=== PATIENT | female | born 1980 | race Caucasian/White ===

== ENCOUNTER → 2018-01-31 | Outpatient (CLI) | payer OTHER, MEDICAID ==
[~2018-01-31] MED LIST: ACHYD1T PO; DCS100C PO; FRS325T PO; GADOBUTROL 10 MMOL/10 ML (GADAVIST) VIAL IV ONE; HYDR-3820 PO; HYDR1TAB75 PO; HYDR25TA4 PO; IBP800T PO; NITR100C PO; PEG250PW PO; PREN1TAB39 PO; PS30T PO; TRAM50TA2 PO; VANC250C2 PO; VANCOMYCIN PO; VITA1CAP59 PO
[2018-01-31 19:05] LABS: HEMOGLOBIN 11.9 G/DL (11.5-16.0); MEAN PLATELET VOLUME 10.3 FL (7.4-10.4); RED BLOOD COUNT 3.76 10^6/uL (4.35-5.85); RED CELL DISTRIBUTION WIDTH 12.6 % (10.0-14.5); WHITE BLOOD COUNT 7.3 10^3/uL (4.3-11.0)
[2018-01-31 19:16] LABS: PROTHROMBIN TIME PATIENT 13.1 SEC (12.2-14.7)
--- NOTE | 2018-01-31 19:20 | Diagnostic Imaging Report ---
INDICATION: Headache. COMPARISON: Comparison made with prior examination from 10/21/2009. TECHNIQUE: Multiplanar and multisequence acquisitions were acquired through the brain before and after the administration of gadolinium. FINDINGS: The ventricles and sulci are within normal limits. There is no hydrocephalus. There is no midline shift. There is no intracranial mass, hemorrhage, or extra-axial fluid collection. There are no areas of diffusion restriction appreciated to suggest an acute CVA. There are no abnormal areas of contrast enhancement. Pituitary is normal in appearance. The infundibulum is midline. The optic chiasm is unremarkable. The frontal, ethmoid, sphenoid, and maxillary sinuses are clear. Mastoid air cells are clear. The globes and intraorbital structures are unremarkable. The central arterial and dural venous sinus flow voids are preserved. IMPRESSION: Unremarkable MRI brain. Dictated by: Dictated on workstation # [id number]
== END ==
LOC: RAD 17:32
PROVIDERS: ATTEND Nurse Practitioner Family
DX: R51 Headache (principal); H53.9 Unspecified visual disturbance
CPT/HCPCS: 36415; 70553; 85027; 85610; 85730

== ENCOUNTER → 2018-03-03 | Outpatient (CLI) | payer OTHER, MEDICAID ==
[~2018-03-03] MED LIST changes: -GADOBUTROL 10 MMOL/10 ML (GADAVIST) VIAL IV ONE; +IOHEXOL 350 MG/ML 100 ML (OMNIPAQUE 350) VIAL IV ONE; +NS 250 ML (IVPB) BAG IV ONE; +RECEIVED CONTRAST (Hold Metformin) IV SCH
--- NOTE | 2018-03-03 12:13 | Diagnostic Imaging Report ---
CLINICAL INDICATION: Patient with abdominal pain with nausea. Pain is sharp and mid to left side. Patient is status post hysterectomy. EXAM: CT scan of the abdomen and pelvis performed with 100 cc of Omnipaque 350 IV contrast. Coronal and sagittal reformatted images were created. Portal venous and delayed phases were obtained. FINDINGS: There are small bone islands seen in the left acetabular region. Otherwise, bones show no significant abnormality. There is mild diffuse hyperechogenicity seen throughout the liver likely relating to diffuse fatty infiltration. Otherwise, the liver is unremarkable. The spleen, pancreas, gallbladder, adrenal glands, and both kidneys are unremarkable. There is no evidence of renal mass or hydronephrosis. There are surgical sutures in the region of the cecum, which may be related to appendectomy changes. Appendix is not visualized. There are no fluid collections or bowel wall thickening or abnormality in the pericecal region. Intestines are otherwise unremarkable with no bowel wall thickening or evidence of intestinal obstruction. There is predominantly decompressed stomach noted. There is no significant intra-abdominal free air or free fluid. The uterus has been surgically resected with no significant abnormality seen. IMPRESSION: 1: There is no evidence of acute abdominal or pelvic process. 2: Postop changes to the abdomen and pelvis are seen with hysterectomy and suspected appendectomy changes. There is no significant abnormality in the hysterectomy region. 3: Likely mild diffuse fatty infiltration of the liver. Dictated by: Dictated on workstation # [id number]
== END ==
LOC: RAD 09:57
PROVIDERS: ATTEND Nurse Practitioner Family
DX: R10.2 Pelvic and perineal pain (principal); R11.0 Nausea; Z90.710 Acquired absence of both cervix and uterus
CPT/HCPCS: 74177

== ENCOUNTER → 2018-03-13 | Outpatient (CLI) | payer MEDICAID, OTHER ==
[~2018-03-13] MED LIST changes: +CATHETER FLUSH 10 ML SYR IV PRN; +CHOL500049 PO; +DESM0.1T PO; -IOHEXOL 350 MG/ML 100 ML (OMNIPAQUE 350) VIAL IV ONE; +LIPA1CAP67 PO; +NORG1TAB14 PO; -NS 250 ML (IVPB) BAG IV ONE; -RECEIVED CONTRAST (Hold Metformin) IV SCH
--- NOTE | 2018-03-13 15:44 | Diagnostic Imaging Report ---
Indication: Right upper quadrant pain. Patient was administered 5.3 mCi technetium 99m Choletec intravenously and imaging over the abdomen was performed. At 45 minutes, the patient ingested 8 ounces of Ensure and the gallbladder ejection fraction was calculated. There is homogeneous uptake of activity by liver with prompt excretion of activity into the common duct and gallbladder. Normal passage of activity into the small bowel is seen. Gallbladder ejection fraction is low at 23%. Normal values are 33% or higher. Impression: 1. No evidence of cystic duct or common bile duct obstruction. 2. Low gallbladder ejection fraction of 23%. Dictated by: Dictated on workstation # [id number]
== END ==
LOC: CARD 11:40
PROVIDERS: ATTEND Nurse Practitioner Family
DX: R10.11 Right upper quadrant pain (principal)
CPT/HCPCS: 78227

== ENCOUNTER 2018-03-20 06:33 | Outpatient (CLI) | payer MEDICAID ==
[~2018-03-20] VITALS: Ht 177.8 cm; Wt 88.5 kg
[~2018-03-20 06:33] MED LIST changes: -CATHETER FLUSH 10 ML SYR IV PRN; -CHOL500049 PO; -DESM0.1T PO; -LIPA1CAP67 PO; -NORG1TAB14 PO
[2018-03-20] MEDS ORDERED: NORG1TAB14 PO (16:10)
[2018-03-20] MEDS ORDERED: CHOL500049 PO (16:10)
[2018-03-20] MEDS ORDERED: DESM0.1T PO (16:10)
[2018-03-20] MEDS ORDERED: LIPA1CAP67 PO (16:10)
== END 2018-03-20 16:12 | disposition home or self-care (01) ==
LOC: PREOP 06:33
PROVIDERS: ATTEND Surgery
DX: Z01.818 Encounter for other preprocedural examination (principal)

== ENCOUNTER 2018-03-24 08:31 | Day surgery (SDC) | payer MEDICAID ==
[~2018-03-24] VITALS: Ht 177.8 cm; Wt 88.5 kg
[~2018-03-24 08:31] MED LIST changes: +CHOL500049 PO; +DESM0.1T PO; +LIPA1CAP67 PO; +NORG1TAB14 PO
[2018-03-24 08:35] VITALS: BP 116/73
[2018-03-24] MEDS ORDERED: NS IV 500 ML 500 ML ONE (08:42)
--- NOTE | 2018-03-24 08:54 | Conscious Sedation/ASA ---
Conscious Sedation Pre-Proced Time 08:54 ASA Score 2 For ASA 3 and 4: Consider anesthesia and medical clearance. Also, for patients with a history of failed moderate sedation consider anesthesia. Airway Lungs Heart ASA score ASA 1: a normal healthy patient ASA 2: a patient with a mild systemic disease (mid diabetes, controlled hypertension, obesity ASA 3: a patient with a severe systemic disease that limits activity (angina , COPD, prior Myocardial infarction) ASA 4: a patient with an incapacitating disease that is a constant threat to life (CHF, renal failure) ASA 5: a moribund patient not expected to survive 24 hrs. (ruptured aneurysm) ASA 6: a declared brain patient whose organs are being harvested. For emergent operations, add the letter E after the classification Mallampati Classification Grade 1 Sedation Plan Discussed options with patient/fam The patient is an appropriate candidate to undergo the planned procedure, sedation, and anesthesia. The patient immediately re-assessed prior to indication. EDD MASON MD Mar 24, 2018 08:54
[2018-03-24] MEDS ORDERED: MIDAZOLAM 2 MG/2 ML (VERSED) VIAL ONE ×4 (09:03→09:04)
[2018-03-24] MEDS ORDERED: fentaNYL INJECTION 100 MCG/2 ML AMP ONE (09:03)
[2018-03-24] MEDS ORDERED: HURRICAINE EXT TUBE (BENZOCAINE) ONE (09:04)
--- NOTE | 2018-03-24 09:13 | Endo Procedure Record ---
Endo Procedure Report Date of Procedure Last Colonoscopy: Yes Mar 24, 2018 Surgeon (s) EDD MASON MD Post Procedure/Op Diagnosis grade 1 esophagitis Procedure Performed EGD with antral biopsy for H. pylori Description of Procedure Anesthesia Type: Conscious Sedation Specimen(s) collected/removed antral mucosa for H. pylori Description of the Procedure Indication for the procedure: This lady came in for an endoscopic assessment of symptoms of reflux. Informed consent was obtained after reviewing the procedure in detail. Description of procedure: She was placed in left lateral decubitus position and her vital signs were monitored. Conscious sedation was achieved using Versed and fentanyl. The flexible gastroscope was then introduced down the esophagus, past the stomach, into the proximal duodenum. Findings: Esophagus: Very mild esophagitis and a possibly grade 1 Stomach and duodenum were normal. Due to her symptoms, and antral biopsy was obtained for Helicobacter status. She tolerated the procedure well and was taken back to the nursing area in a stable condition Impression: Symptoms of reflux disease. Mild esophagitis. Helicobacter status pending. Copy Copies To 1: NIKKI RIVERA XAVIER M MD Mar 24, 2018 09:13
[2018-03-24] MEDS ORDERED: NS IV 500 ML 500 ML IV PRN (09:14)
[2018-03-24] MEDS ORDERED: MIDAZOLAM 2 MG/2 ML (VERSED) VIAL IVP ONE (09:15)
[2018-03-24] MEDS ORDERED: fentaNYL INJECTION 100 MCG/2 ML AMP IVP ONE (09:15)
[2018-03-24] MEDS ORDERED: HURRICAINE EXT TUBE (BENZOCAINE) XX PRN (09:15)
--- NOTE | 2018-03-24 09:32 | Discharge Inst-Simple/Standard ---
Discharge Inst-Standard Discharge Medications New, Converted or Re-Newed RX: Other Patient Instructions/Follow Up Plan of Care/Instructions/FU: please call for Prilosec 20 mg daily to her pharmacy. To return for gallbladder surgery next week Activity as Tolerated: Yes Discharge Diet: No Restrictions EDD MASON MD Mar 24, 2018 09:32
[2018-03-24 09:50] VITALS: BP 103/60
[2018-03-24 10:15] VITALS: BP 109/72
[2018-03-24 10:25] VITALS: BP 109/72
== END 2018-03-24 10:25 | disposition home or self-care (01) ==
LOC: ENDO 08:31
PROVIDERS: ATTEND Surgery
DX: K21.0 Gastro-esophageal reflux disease with esophagitis (principal); K81.1 Chronic cholecystitis; Z80.0 Family history of malignant neoplasm of digestive organs

== ENCOUNTER 2018-03-26 05:39 | Outpatient (CLI) | payer MEDICAID ==
[~2018-03-26] VITALS: Ht 177.8 cm; Wt 88.5 kg
== END 2018-03-26 14:59 | disposition home or self-care (01) ==
LOC: PREOP 05:39
PROVIDERS: ATTEND Surgery
DX: Z01.818 Encounter for other preprocedural examination (principal)

== ENCOUNTER 2018-04-02 08:01 | Day surgery (SDC) | payer MEDICAID ==
[~2018-04-02] VITALS: Ht 177.8 cm; Wt 88.5 kg
[2018-04-02] MEDS ORDERED: fentaNYL INJECTION 100 MCG/2 ML AMP ONE ×2 (08:11→09:48)
[2018-04-02] MEDS ORDERED: SEVOFLURANE (ULTANE) 15 ML INHAL SOLN ONE ×4 (08:11→10:22)
[2018-04-02] MEDS ORDERED: ONDANSETRON 4 MG/2 ML (SDV) Z0FRAN ONE ×2 (08:11→08:33)
[2018-04-02] MEDS ORDERED: DEXAMETHASONE 10 MG/ML (DECADRON) 1 ML VIAL ONE (08:11)
[2018-04-02] MEDS ORDERED: proPOfol 200 MG/20 ML (DIPRIVAN) VIAL IV ONE (08:11)
[2018-04-02] MEDS ORDERED: ROCURONIUM 10 MG/ML 5 ML SYRINGE IV ONE (08:11)
[2018-04-02] MEDS ORDERED: MIDAZOLAM 2 MG/2 ML (VERSED) VIAL ONE (08:11)
--- NOTE | 2018-04-02 08:18 | Progress Note-Pre Operative ---
Pre-Operative Progress Note H&P Reviewed The H&P was reviewed, patient examined and no changes noted. Date Seen by Provider: Mar 24, 2018 Time Seen by Provider: 11:00 Date H&P Reviewed: Apr 02, 2018 Time H&P Reviewed: 08:18 Pre-Operative Diagnosis: Chronic acalculous cholecystitits EDD MASON MD Apr 02, 2018 08:18
[2018-04-02 08:30] VITALS: BP 118/78
[2018-04-02] MEDS ORDERED: metroNIDAZOLE 500MG/100ML IVPB 100 ML IV ONE (08:30)
[2018-04-02] MEDS ORDERED: ceFAZolin 2 GM IV Premixed 50 ML IV ONE (08:30)
[2018-04-02] MEDS: LACTATED RINGERS 1,000 ML IV PRN ×2 (08:32→09:24)
[2018-04-02] MEDS ORDERED: SCOPOLAMINE 1.5 MG (TRANSDERM-SCOP) PATCH ONE (08:33)
[2018-04-02] MEDS ORDERED: FAMOTIDINE 20MG/2ML IV (PEPCID) ONE (08:33)
[2018-04-02] MEDS ORDERED: ETOMIDATE IV SOLN 20 MG/10 ML VIAL ONE (08:35)
[2018-04-02] MEDS ORDERED: BUPIVACAINE 0.25% 30 ML (SENSORCAINE) VIAL ONE (08:38)
[2018-04-02] MEDS ORDERED: ONDANSETRON 4 MG/2 ML (SDV) Z0FRAN IV ONE (08:45)
[2018-04-02] MEDS ORDERED: SCOPOLAMINE 1.5 MG (TRANSDERM-SCOP) PATCH TOP ONE (08:45)
[2018-04-02] MEDS ORDERED: FAMOTIDINE 20MG/2ML IV (PEPCID) IV ONE (08:45)
[2018-04-02] MEDS ORDERED: HYDR5TAB PO (08:55)
[2018-04-02] MEDS ORDERED: BUP/EPI 0.5% 1:200,000 (SENSORCAINE) 30 ML VIAL ONE (08:59)
[2018-04-02] MEDS ORDERED: NEOSTIGMINE 1 MG/ML 5 ML SYRINGE ONE (09:41)
[2018-04-02] MEDS ORDERED: GLYCOPYRROLATE 0.2 MG/ML (ROBINUL) 2 ML VIAL ONE (09:41)
--- NOTE | 2018-04-02 10:18 | Operative Report ---
Operative Report Date of Procedure/Surgery Apr 02, 2018 Surgeon (s) EDD MASON MD Billing Customer Service Representative (s): N/A Post-Operative Diagnosis Same Procedure Performed Robotic-assisted cholecystectomy Description of Procedure Anesthesia Type: General Estimated blood loss (mL): Minimal Specimen(s) collected/removed Gallbladder Description of the Procedure Indication for the procedure: This lady presented with symptoms due to chronic acalculous cholecystitis. She was offered cholecystectomy using minimally invasive technique with robotic assistance. Informed consent was obtained after reviewing the operative details and complications of wound infection, bile leak, postoperative bleeding and the potential for persistent symptoms, requiring further evaluation. Description of the procedure: She was placed supine on the operative table and general anesthesia induced. 2 g of Ancef and 500 mg of Flagyl were administered intravenously as prophylaxis against wound infection. Sequential compression devices were placed around her legs, to minimize the risk of venous thrombosis. Abdomen was prepared and draped in the usual sterile manner. A supraumbilical incision was made and pneumoperitoneum established using a Veress needle. Intra -abdominal pressure was maintained at 15 mmHg, using Fong outside insufflation. 12 mm trocar was placed and anatomy visualized in the high definition, 3-dimensional laparoscope associated with da Benjamin system. Under direct view, I placed an 8 mm trocar over each tied of the abdomen, followed by a 5 mm trocar over the left subcostal region. The patient was then turned into reverse Trendelenburg position, with the right side tilted up the robotic system was then in place. The fundus of the gallbladder was retracted cephalad and the infundibulum grasped with Cadiere forceps. Peritoneum overlying Calot's triangle was incised using the hook cautery, delineating the cystic duct and artery. Both were divided between locking clips. Cholecystectomy was then completed using hook cautery. Subhepatic space was irrigated with saline and the gallbladder placed in an Endo Catch bag, being removed via the supraumbilical trocar site. The fascia over this incision was closed using #1 Vicryl. Skin incisions were closed using 4-0 Vicryl, in a subcuticular fashion. 0.5 percent Marcaine with epinephrine was infiltrated along the incisions, both preemptively and at the conclusion of the operation. She tolerated the procedure well, was extubated in the operating room and taken to the recovery room in a stable condition. Findings of the Procedure See op report Allergies and Home Medications Allergies Coded Allergies: Sulfa (Sulfonamide Antibiotics) (Unverified Allergy, Unknown, 06/19/10) codeine (Unverified Allergy, Unknown, 11/02/15) Home Medications Cholecalciferol (Vitamin D3) 50,000 Unit Capsule, 50,000 UNIT PO WEEK, (Reported ) Hydrocortisone 5 Mg Tablet, 5 MG PO BID, (Reported) Lipase/Protease/Amylase 1 Each Capsule.dr, 1 EACH PO TID, (Reported) Patient Home Medication List Home Medication List Reviewed: Yes EDD MASON MD Apr 02, 2018 10:18
[2018-04-02] MEDS ORDERED: OXYC1TAB87 PO (10:19)
--- NOTE | 2018-04-02 10:20 | Discharge Inst-Simple/Standard ---
Discharge Inst-Standard Discharge Medications New, Converted or Re-Newed RX: RX on Chart Patient Instructions/Follow Up Plan of Care/Instructions/FU: Band-Aids off in 48 hours. Incentive spirometry. Follow-up in 3 weeks Activity as Tolerated: Yes Discharge Diet: No Restrictions EDD MASON MD Apr 02, 2018 10:20
[2018-04-02] MEDS ORDERED: HYDROmorphone 2 MG/ML VIAL (DILAUDID) ONE (10:34)
[2018-04-02] MEDS ORDERED: HYDROmorphone 2 MG/ML VIAL (DILAUDID) IV ONE (10:45)
[2018-04-02] MEDS ORDERED: ONDANSETRON 4 MG/2 ML (SDV) Z0FRAN IVP PRN (10:45)
[2018-04-02] MEDS ORDERED: PROMETHAZINE INJ 25 MG/ML (PHENERGAN) AMP ONE (10:49)
[2018-04-02] MEDS ORDERED: PROMETHAZINE INJ 25 MG/ML (PHENERGAN) AMP IVP ONE (11:00)
[2018-04-02 11:30] VITALS: BP 99/60
[2018-04-02 12:00] VITALS: BP 96/58
[2018-04-02] MEDS ORDERED: diphenhydrAMINE 25 MG TAB (BENADRYL) PO ONE ×2 (12:11→12:15)
[2018-04-02] MEDS ORDERED: oxyCODONE/APAP 5/325MG (PERCOCET 5) TABLET ONE (12:21)
[2018-04-02 12:30] VITALS: BP 109/66
[2018-04-02] MEDS ORDERED: oxyCODONE/APAP 5/325MG (PERCOCET 5) TABLET PO ONE (12:30)
[2018-04-02 13:15] VITALS: BP 101/56
[2018-04-02 13:30] VITALS: BP 101/56
--- NOTE | 2018-04-02 14:09 | Anesthesia-General Post-Op ---
General Patient Condition Mental Status/LOC: Same as Preop Cardiovascular: Satisfactory Nausea/Vomiting: Absent Respiratory: Satisfactory Pain: Controlled Complications: Absent Post Op Complications Complications None Follow Up Care/Instructions Patient Instructions None needed. Anesthesia/Patient Condition Patient Condition Patient is doing well, no complaints, stable vital signs, no apparent adverse anesthesia problems. No complications reported per nursing. ALEC DAVID CRNA Apr 02, 2018 14:09
== END 2018-04-02 13:30 | disposition home or self-care (01) ==
LOC: SDC 08:01
PROVIDERS: ATTEND Surgery
DX: K81.1 Chronic cholecystitis (principal); K82.8 Other specified diseases of gallbladder; K21.9 Gastro-esophageal reflux disease without esophagitis; I49.8 Other specified cardiac arrhythmias; I89.0 Lymphedema, not elsewhere classified; Z11.2 Encounter for screening for other bacterial diseases; Z88.2 Allergy status to sulfonamides; Z88.5 Allergy status to narcotic agent; Z79.899 Other long term (current) drug therapy; Z87.891 Personal history of nicotine dependence
CPT/HCPCS: 87081; 94664